=== PATIENT | female | born 2000 | race Caucasian/White ===

== ENCOUNTER 2024-11-29 12:27 | Outpatient (CLI) | payer OTHER, SELFPAY ==
[2024-11-29 13:23] LABS: Ferritin 30 ng/mL (15-150)
== END 2024-11-29 12:28 | disposition home or self-care (01) ==
LOC: LAB 12:29
PROVIDERS: PCP Family Medicine; Visit Provider Nurse Practitioner Family
DX: L65.0 Telogen effluvium (principal)
CPT/HCPCS: 36415; 82652; 82728; 84630